=== PATIENT | female | born 1960 | race Asian ===

== ENCOUNTER → 2020-05-21 | Outpatient (CLI) | payer BC ==
[~2020-05-21] MED LIST: ASCO10004 PO; ASCO1CAP2 PO; CHOL10002 PO; CYAN1TAB29 PO
== END | disposition home or self-care (01) ==
LOC: CFH 07:06
PROVIDERS: ATTEND Obstetrics & Gynecology
DX: Z12.31 Encounter for screening mammogram for malignant neoplasm of breast (principal)
CPT/HCPCS: 77067